=== PATIENT | male | born 1990 | race Caucasian/White ===

== ENCOUNTER 2022-10-14 12:58 | Emergency (ER) | payer OTHER ==
[~2022-10-14] VITALS: Ht 177.8 cm; Wt 102.1 kg
[2022-10-14 14:44] VITALS: BP_SYST 149
--- NOTE | 2022-10-14 14:45 | NUR ---
32-year-old male with history of polysubstance abuse presents for drug overdose concern. Patient states that he was snorting methamphetamine yesterday and was given a another bag of white powder. He is unsure if it was heroin or even possibly fentanyl. He used the drugs 7 hours ago. Afterwards, he stated that he began to have swelling and numbness and tingling in his hands as well as tingling in his legs. The symptoms have since subsided. He has a long history of substance abuse. He has plans to enter rehab program tomorrow. No other concerns currently.
--- NOTE | 2022-10-14 14:50 | NUR ---
Patient to ER bed H1 to gown for evaluation. Side rails up. Report given to CARMEN ZAMARRIPA.
--- NOTE | 2022-10-14 15:36 | NUR ---
Patient given written and verbal discharge instructions and verbalizes understanding. ER MD discussed with patient the results and treatment provided. Patient in stable condition. ID arm band removed. Opportunity for questions provided and answered. Medication side effect fact sheet provided.
[2022-10-14 15:37] VITALS: BP_SYST 149
== END 2022-10-14 15:37 | disposition home or self-care (01) ==
LOC: SED 12:58
DX: F19.10 Other psychoactive substance abuse, uncomplicated (principal); R20.2 Paresthesia of skin; Z79.899 Other long term (current) drug therapy
CPT/HCPCS: 99281